=== PATIENT | male | born 1975 | race Caucasian/White ===

== ENCOUNTER 2016-11-23 13:04 | Emergency (ER) | payer OTHER ==
[~2016-11-23] VITALS: Ht 180.3 cm; Wt 104.5 kg
[~2016-11-23 13:04] MED LIST: AMLO5TAB2 PO; CLON0.2T PO; FOLI1TAB18 PO; MULT1CAP33 PO; NICO-206 TOPICAL; PRAZ1CAP2 PO; THIA100T64 PO; TRAZ-115 PO; VENL75CA95 PO
[2016-11-23 13:19] VITALS: BP 7/114; PULSE 117; RESP 18; O2SAT 97
--- NOTE | 2016-11-23 15:06 | ED.REPORT ---
HPI-General Illness Date of Service Nov 23, 2016 ED Provider: Raji Conteh MD Patient is a 41 year old male with a history of hypertension, alcohol and heroin abuse (in recovery) and pancreatitis who presents to the ED complaining of left flank pain/bruising onset 4 days ago. He denies nausea, vomiting, fever , trauma or any traumatic injury. The patient reports that he didn't notice the bruising until two days ago. Patient states that the pain starts in his back and wraps around to the lower abdomen. The patient reports that he heard a "pop " that woke him from his sleep when the pain started. Patient states that it does not feel the same as when he had pancreatitis. He is not anticoagulated. Nursing Notes Stated Complaint: LOWER ABD PAIN Chief Complaint: Male Abdominal Pain Nursing Notes Reviewed: Yes Allergies: Coded Allergies: No Known Allergies (Verified Allergy, Unknown, 11/25/15) Scheduled Amlodipine (Amlodipine) 5 Mg Tablet 10 MG PO DAILY Clonidine (Clonidine) 0.2 Mg Tablet 0.2 MG PO BID Folic Acid (Folic Acid) 1 Mg Tablet 1 MG PO DAILY Multivitamin (Multivitamins) 1 Each Capsule 1 EACH PO DAILY Nicotine 7 mg/24 hr Patch (Nicotine 7 mg/24 hr Patch) 1 Each Patch.td24 1 PATCH TOPICAL Q24H Prazosin (Prazosin) 1 Mg Capsule 1-2 MG PO HS Thiamine Mononitrate (Vitamin B-1) 100 Mg Tablet 100 MG PO DAILY Venlafaxine ER (Venlafaxine ER) 75 Mg Cap.er.24h 75 MG PO DAILY Scheduled PRN Trazodone (Trazodone) 50 Mg Tablet 50 MG PO HS PRN PRN Insomnia General Time Seen by MD: 14:59 Chief Complaint Other (flank pain) Hx Obtained From: Patient Arrived By: Walk-in Sudden in Onset?: Yes Onset Occurred: 4 days ago Symptom Duration: Since onset Location: : Abdomen: Back Quality: Painful Severity: Current: Moderate Similar Sx Previous: No Past Medical History Past Medical History Notes: Immediate December 23 U 2015 for alcohol withdrawal, acute pancreatitis Past Medical History ETOH abuse Chronic pancreatitis PTSD Anxiety Opioid dependence Hypertension (note per admission from December indicates that the plan and started him on metoprolol and hydralazine with the thought that his hypertension seems to be persistent despite pain or resolution of alcohol withdrawal) Reports: Hypertension Reports: Pancreatitis Past Surgical History denies Family History Noncontributory Smoking History Current Every Day Smoker, Heavy Tobacco Smoker Social History Hx of heroin use Alcohol Use: In recovery Drug Use: In recovery Other Social History: Local resident Occupation lives with Dad, no work, no school Ambulatory Status Independent Review of Systems Full Review of Systems Constitutional: Denies: Chills, Fever GI: Reports: Abdominal pain, Denies: Nausea, Vomiting Male: Reports Flank pain Hematologic: Reports Bruising Complete sys rev & neg: except as marked. Physical Exam Vital Signs Vital Signs Date Time Temp Pulse Resp B/P Pulse Ox O2 Delivery O2 Flow Rate FiO2 11/23/16 18:10 98 10 132/73 96 Room Air 11/23/16 13:19 37.2 117 18 7/114 97 Room Air Initial VS: Reviewed General/Constitutional: Awake, Alert Head / Eyes: Atraumatic, Normocephalic, PERRL, EOMI ENT: Atraumatic, Airway patent, Mucous membranes moist Respiratory / Chest: Atraumatic, Breath sounds NL, Breath sounds = bilat, No respiratory distress Cardiovascular: Heart rate NL, Regular rhythm, Heart sounds NL, No gallop, No murmurs, No rubs Abdomen: Atraumatic, Soft, No guarding, No rebound palm sized region of ecchymosis over the left flank and left lower quadrant contact dermititis about the suprapubic region mild left lower quadrant and left upper quadrant tenderness, without rebound or guarding Back: Atraumatic, Inspection NL no percussive flank tenderness Upper Extremities Upper Extremity / MS: Atraumatic, Full range of motion Lower Extremity / Pelvis / MS: Atraumatic, No swelling, Non-tender Skin: No rash, Warm, Dry Neurologic: Oriented X3, Speech NL Psychiatric: Affect NL, Mood NL Interpretation & Diagnostics Lab Results Interpretation Result Diagram: 11/23/16 1520 11/23/16 1520 Test 11/23/16 15:20 11/23/16 15:25 11/23/16 16:30 White Blood Count 11.4th/mm3 (3.8-10.1) Red Blood Count 4.31mil/mm3 (4.40-5.80) Hemoglobin 14.1g/dL (13.8-17.2) Hematocrit 41.0% (41.0-50.0) Mean Corpuscular Volume 95.1fL (81-100) Mean Corpuscular Hemoglobin 32.7pg (27.0-35.0) Mean Corpuscular Hemoglobin Concent 34.4% (32.0-37.0) Red Cell Distribution Width 13.0% (12.3-15.4) Platelet Count 239bil/L (150-400) Neutrophils (%) (Auto) 67.8% (40-74) Lymphocytes (%) (Auto) 23.4% (14-46) Monocytes (%) (Auto) 7.1% (4-12) Eosinophils (%) (Auto) 1.0% (0-5) Basophils (%) (Auto) 0.3% (0-3) Sodium Level 134mEq/L (134-144) Potassium Level 3.9mEq/L (3.5-5.2) Chloride Level 95mEq/L (97-108) Carbon Dioxide Level 22mmol/L (18-29) Blood Urea Nitrogen 10mg/dL (6-24) Creatinine 0.73mg/dL (0.76-1.27) Estimat Glomerular Filtration Rate 126mL/min (>59) Glucose Level 88mg/dL (60-99) Calcium Level 9.3mg/dL (8.5-10.1) Magnesium Level 2.0mg/dL (1.6-2.6) Total Bilirubin 0.7mg/dL (0.0-1.2) Aspartate Amino Transf (AST/SGOT) 36U/L (0-50) Alanine Aminotransferase (ALT/SGPT) 16U/L (0-44) Alkaline Phosphatase 67U/L (25-150) Total Protein 7.8g/dL (6.4-8.4) Albumin 4.5g/dL (3.4-5.0) Lipase 54U/L (13-60) Hold Barnes Top Tube Received (Received) Prothrombin Time 10.0sec (8.1-12.5) Prothromb Time International Ratio 0.94ratio Urine Color Dark yellow (YELLOW) Urine Appearance Clear (CLEAR,HAZY) Urine pH 5.5 (5.0-8.0) Urine Specific [place] 1.030 (1.003-1.035) Urine Protein Tracemg/dL (NEG,TRACE) Urine Glucose (UA) Negativemg/dL (NEGATIVE) Urine Ketones Negativemg/dL (NEGATIVE) Urine Occult Blood Negative (NEGATIVE) Urine Nitrite Negative (NEGATIVE) Urine Bilirubin Negative (NEGATIVE) Urine Urobilinogen Normalmg/dL (NORMAL) Urine Leukocyte Esterase Negative (NEGATIVE) Urine RBC 0-2/hpf (0-2) Urine WBC 0-5/hpf (0-5) Urine Epithelial Cells Few/hpf (NONE-MOD) Urine Crystals None seen (NONE SEEN) Urine Bacteria Few/hpf (NONE-FEW) Urine Hyaline Casts None/lpf (NONE) Urine Granular Casts None seen (NONE SEEN) Urine Waxy Casts None seen (NONE SEEN) Urine Red Blood Cell Casts None seen (NONE SEEN) Urine White Blood Cell Casts None seen (NONE SEEN) Urine Mucus Present (None Seen) Urine Trichomonas None seen (NONE SEEN) Urine Yeast None (NONE SEEN) Urinalysis Comment None Urine Culture Reflexed Not indicated CT Abd / Pelvis Interpretation IMPRESSION: 1. No intraperitoneal fluid or air. 2. No evidence of solid organ laceration or fracture. 3. Hepatic steatosis. 4. Swelling and stranding involving the left lateral abdominal soft tissues which is a nonspecific finding which could be related to posttraumatic contusion, infection or less likely neoplastic process. Please correlate with clinical data. Dictated by: Ree Sotelo MD, PhD on 11/23/2016 at 17:42 Approved by: Ree Sotelo MD, PhD on 11/23/2016 at 17:48 Interpretation / Wet Read by: Interpret - Radiologist Re-Eval/Medical Decision Med Decision/Clinical Course Patient is a 41 year old male with a history of hypertension, alcohol and heroin abuse (in recovery) and pancreatitis who presents to the ED complaining of left flank pain/bruising onset 4 days ago. He denies nausea, vomiting, fever , trauma or any traumatic injury. The patient reports that he didn't notice the bruising until two days ago. Patient states that the pain starts in his back and wraps around to the lower abdomen. The patient reports that he heard a "pop " that woke him from his sleep when the pain started. Patient states that it does not feel the same as when he had pancreatitis. He is not anticoagulated. Here in the emergency department the patient is afebrile with stable vital signs and examination as above. Examination reveals significant ecchymosis about the left flank/abdomen that appears traumatic in nature but he denies any trauma. Patient received the blow medications effect: Order list: IVF, Dilaudid and Zofran Labs: CBC demonstrated leukocytosis of 11.4, otherwise unremarkable CMP unremarkable lipase within normal limits Coag studies normal Urine dip is unremarkable Urinalysis shows dark urine, few bacteria, 0-5 WBC, 0-2 RBC, negative nitrites, negative leukocyte esterase, unconvincing for infection CT abdomen: 1. No intraperitoneal fluid or air. 2. No evidence of solid organ laceration or fracture. 3. Hepatic steatosis. 4. Swelling and stranding involving the left lateral abdominal soft tissues which is a nonspecific finding which could be related to posttraumatic contusion , infection or less likely neoplastic process. Please correlate with clinical data. Here in the emergency department the patient remained hemodynamically stable and in no apparent distress. His abdominal examination was relatively benign on serial reassessments. I was initially concerned that the ecchymosis of his flank and abdomen could be indicative of retroperitoneal blood, severe pancreatitis or other immediately concerning process. CT scan however demonstrated no concerning findings and laboratory studies were relatively unremarkable. He continued to deny any known traumatic injury. I certainly find myself wondering if he may have been drinking again and sustained an injury though he does not appear intoxicated at this time. He continues to state that he has not been drinking alcohol or using drugs. While the cause of his ecchymosis remains unclear I see no evidence of immediately life- threatening process and I feel he is appropriate for discharge. Prior to discharge follow-up and return precautions were reviewed in detail with the patient who verbalized understanding and agreement with the plan. The patient was discharged in stable condition. Re-Evaluation/Progress Note: Discussed results and plan for discharge. Patient understands and agrees to plan. All questions were addressed. Counseled Regarding: Diagnosis, Lab results, Need for follow-up, When/why to return to ED Discharge & Departure Primary Impression: Abdominal contusion Additional Impressions: History of alcohol abuse History of pancreatitis Disposition: Home Discharge Condition All VS Reviewed: Yes Condition: Stable Patient Instructions: Contusion in Adults (ED) Additional Instructions: Thank you for seeking care at the emergency room. Our primary goal today in the Emergency Department was to evaluate you for any life-threatening conditions. Your evaluation was reassuring. Your abdomen CT scan did not show any evidence of pancreatitis. You should follow-up with your primary doctor in the next week. You should return to the Emergency Department immediately if you develop fevers , vomiting or any other concerning signs or symptoms. Thank you for letting us partake in your care today. Referrals: Eusebio Avilez MD (PCP) Jignesh Attestation Portions of this note were transcribed by Peace White. I, Dr. Conteh personally performed the history, physical exam and medical decision-making; I reviewed and confirmed the accuracy of the information in the transcribed note. Signed by: Jignesh Rousseau, 11/23/16 copies to: Eusebio Avilez MD, Beck O MD Nov 23, 2016 15:06 Elena White Nov 23, 2016 15:11
[2016-11-23] MEDS ORDERED: 0.9% Sodium Chloride 1,000 ML IV ONE (15:19)
[2016-11-23] MEDS ORDERED: Ondansetron 2 mg/mL 2 mL Inj IVPUSH ONE (15:20)
[2016-11-23 15:23] LABS: BASOPHILS % (AUTO) 0.3 % (0-3); MONOCYTES % (AUTO) 7.1 % (4-12); Mean Corpuscular Hemoglobin 32.7 pg (27.0-35.0); Mean Corpuscular Volume 95.1 fL (81-100); NEUTROPHILS % (AUTO) 67.8 % (40-74); Platelet Count 239 bil/L (150-400)
[2016-11-23] MEDS: HYDROmorphone 0.5 mg/0.5 mL iSecure Syringe IVPUSH PRN ×2 (15:38→17:18)
[2016-11-23 15:40] LABS: INR 0.94 ratio
[2016-11-23 16:49] LABS: APPEARANCE,URINE CLEAR (CLEAR,HAZY); COLOR,URINE DARK YELLOW (YELLOW); OCCULT BLOOD,URINE NEGATIVE (NEGATIVE); PH,URINE 5.5 (5.0-8.0)
[2016-11-23 16:50] LABS: UROBILINOGEN,URINE NORMAL (NORMAL)
--- NOTE | 2016-11-23 17:49 | DRSVH ---
PROCEDURE: CT ABDOMEN AND PELVIS WITH CONTRAST ([id number]) INDICATIONS: abd pain, L abd ecchymosis TECHNIQUE: After the administration of intravenous contrast, 5 mm thick sections acquired from the diaphragm to the symphysis. 5 mm coronal and sagittal reformats were acquired. For radiation dose reduction, the following was used: automated exposure control, adjustment of mA and/or kV according to patient dragan stone. COMPARISON: [facility], CT, CT ABD PELVIS W CON, 11/21/2014, 14:30. FINDINGS: Image quality: Excellent. ABDOMEN: Lung bases: Lung bases are clear. Heart size is normal. Solid organs: Liver and spleen are normal in size and enhancement. Diffuse fatty infiltration of the liver. Gallbladder is within normal limits. Biliary system is non dilated. Pancreas enhances adrienne lly. No adrenal nodules. Kidneys demonstrate normal size and enhancement, without hydronephrosis. Peritoneum and bowel: Bowel loops demonstrate normal wall thickness and caliber. No free fluid or a ir. Nodes and vessels: No retroperitoneal or mesenteric adenopathy by size criteria. Aorta and inferior vena cava are normal in size. Miscellaneous: No ventral hernias. PELVIS: Genitourinary: Bladder wall thickness is normal. Miscellaneous: No inguinal hernias or adenopathy. Stranding and soft tissue swelling noted in the le ft lateral abdominal wall which given history of ecchymosis may represent post rheumatic contusion; p lease correlate with clinical data. Bones: No suspicious bony lesions. No vertebral body compression fractures. Spine degenerative dise ase and facet arthropathy noted. IMPRESSION: 1. No intraperitoneal fluid or air. 2. No evidence of solid organ laceration or fracture. 3. Hepatic steatosis. 4. Swelling and stranding involving the left lateral abdominal soft tissues which is a nonspecific f inding which could be related to posttraumatic contusion, infection or less likely neoplastic process . Please correlate with clinical data. Dictated by: Ree Sotelo MD, PhD on 11/23/2016 at 17:42 Approved by: Ree Sotelo MD, PhD on 11/23/2016 at 17:48
[2016-11-23 18:10] VITALS: BP 132/73; PULSE 98; RESP 10; O2SAT 96
== END 2016-11-23 18:15 | disposition home or self-care (01) ==
LOC: SED 13:04
DX: S30.1XXA Contusion of abdominal wall, initial encounter (principal); X50.9XXA Other and unspecified overexertion or strenuous movements or postures, initial encounter; Y93.89 Activity, other specified; Y92.89 Other specified places as the place of occurrence of the external cause; Y99.8 Other external cause status; F10.10 Alcohol abuse, uncomplicated; I10 Essential (primary) hypertension; F41.9 Anxiety disorder, unspecified; F17.200 Nicotine dependence, unspecified, uncomplicated; Z87.19 Personal history of other diseases of the digestive system
CPT/HCPCS: 36415; 74177; 80053; 81000; 83690; 83735; 85025; 85610; 96361; 96374; 96375; 96376; 99285; J1170; J2405; J7030; Q9967

== ENCOUNTER 2016-11-26 07:03 | Observation (INO) | payer OTHER ==
[2016-11-25 13:45] VITALS: BP 168/94; PULSE 78; RESP 18; O2SAT 97
[~2016-11-26] VITALS: Ht 180.3 cm; Wt 106.0 kg
[2016-11-26 07:14] VITALS: BP 173/104; PULSE 97; RESP 17; O2SAT 95
--- NOTE | 2016-11-26 07:28 | ED.REPORT ---
HPI-General Illness Date of Service Nov 26, 2016 ED Provider: Sandy Sawyer MD The pt is a 41 y/o male w/ a hx of ETOH abuse, pancreatitis, PTSD, anxiety, opiod dependence, and HTN presenting to the ED complaining of L flank pain onset 6 days ago. The pt reports feeling a pop around his L ribs which was when the pain began. He began to notice the bruising 7 days ago and it has gradually spread since then. The pt is not experiencing any SOB but it does hurt his L side when he breathes deeply. He has also experienced a few episodes of dizziness and small twinges of abdominal pain. Denies changes in eating or drinking habits, cough, fevers, vomiting, diarrhea, chest pain, blood in stool. The pt was seen here in the ED 3 days ago for L flank pain w/ bruising on the left side that began 3 days prior. His CXR and abdominal CT, were unremarkable. His bloodwork was also unremarkable, specifically showing no pancreatitis. His final dx for the visit was a contusion. The pt has had pancreatitis in the past but says the pain today is much different. He has not taken anything for the pain. The pts hematocrit was 41 three days and ago and is down to 37 today. Nursing Notes Stated Complaint: ABDOMINAL PAIN Chief Complaint: Male Abdominal Pain Nursing Notes Reviewed: Yes Allergies: Coded Allergies: No Known Allergies (Verified Allergy, Unknown, 11/25/15) Scheduled Lisinopril (Lisinopril) 20 Mg Tablet 20 MG PO DAILY General Time Seen by MD: 07:27 Chief Complaint Other (L flank pain ) Hx Obtained From: Patient Arrived By: Walk-in Sudden in Onset?: Yes Onset Occurred: 6 days ago Symptom Duration: Since onset Recent Healthcare: No recent hospitalization, Recent doctor visit Past Medical History Past Medical History Notes: Immediate December 23 U 2015 for alcohol withdrawal, acute pancreatitis Past Medical History ETOH abuse Chronic pancreatitis PTSD Anxiety Opioid dependence Hypertension Reports: Hypertension Reports: Pancreatitis Past Surgical History denies Family History Noncontributory Smoking History Current Every Day Smoker, Heavy Tobacco Smoker Social History Hx of heroin use Alcohol Use: In recovery Drug Use: In recovery Other Social History: Local resident Occupation lives with Dad, no work, no school Ambulatory Status Independent Review of Systems Denies SOB but experiences increased pain w/ deep breathing; Denies changes in eating or drinking habits; Full Review of Systems Constitutional: Denies: Fever Respiratory: Denies: Non-productive cough Cardiovascular: Denies: Chest pain GI: Reports: Abdominal pain, Denies: Bloody/tarry stool, Diarrhea, Vomiting Male: Reports Flank pain (L sided ) Skin: Reports Bruising (L ribs and abdomen ) Neurologic: Reports: Dizziness Complete sys rev & neg: except as marked. Physical Exam Vital Signs Vital Signs Date Time Temp Pulse Resp B/P Pulse Ox O2 Delivery O2 Flow Rate FiO2 11/26/16 08:17 87 21 148/90 96 Room Air 11/26/16 07:14 37 97 17 173/104 95 Room Air Initial VS: Reviewed General/Constitutional: Well-developed, Well-nourished Head / Eyes: Atraumatic, Normocephalic, PERRL ENT: Mucous membranes moist, Conjunctiva normal, No scleral icterus Neck: Supple, Non-tender, Full range of motion Respiratory: Breath sounds normal, Clear to auscultation, No respiratory distress Cardiovascular: Regular rate & rhythm, Heart sounds normal, Intact distal pulses Neurologic: Alert, Oriented, Nonfocal Psychiatric: Mood/affect normal, Behavior normal, Normal thought content Flank / Spine / Paraspinal: Positive: Flank tender L Skin: No rash, Dry, Intact Large hematoma that extends from L posterior iliac crest, past midline, and roughly 4 cm past the umbilicus Interpretation & Diagnostics The pts hematocrit was 41 three days and ago and is down to 37 today. Lab Results Interpretation Result Diagram: 11/26/16 1008 11/26/16 0750 Test 11/26/16 07:50 11/26/16 09:39 11/26/16 10:08 White Blood Count 5.7th/mm3 (3.8-10.1) Red Blood Count 3.84mil/mm3 (4.40-5.80) Mean Corpuscular Volume 97.1fL (81-100) Mean Corpuscular Hemoglobin 32.8pg (27.0-35.0) Mean Corpuscular Hemoglobin Concent 33.8% (32.0-37.0) Red Cell Distribution Width 12.9% (12.3-15.4) Platelet Count 226bil/L (150-400) Neutrophils (%) (Auto) 50.3% (40-74) Lymphocytes (%) (Auto) 36.6% (14-46) Monocytes (%) (Auto) 10.6% (4-12) Eosinophils (%) (Auto) 2.1% (0-5) Basophils (%) (Auto) 0.2% (0-3) Prothrombin Time 9.8sec (8.1-12.5) Prothromb Time International Ratio 0.92ratio Activated Partial Thromboplast Time 25.8sec (22.8-33.0) Sodium Level 136mEq/L (134-144) Potassium Level 4.1mEq/L (3.5-5.2) Chloride Level 100mEq/L (97-108) Carbon Dioxide Level 22mmol/L (18-29) Blood Urea Nitrogen 8mg/dL (6-24) Creatinine 0.59mg/dL (0.76-1.27) Estimat Glomerular Filtration Rate 161mL/min (>59) Glucose Level 92mg/dL (60-99) Calcium Level 9.0mg/dL (8.5-10.1) Magnesium Level 1.8mg/dL (1.6-2.6) Total Bilirubin 0.3mg/dL (0.0-1.2) Aspartate Amino Transf (AST/SGOT) 61U/L (0-50) Alanine Aminotransferase (ALT/SGPT) 24U/L (0-44) Alkaline Phosphatase 65U/L (25-150) Total Protein 7.3g/dL (6.4-8.4) Albumin 4.1g/dL (3.4-5.0) Lipase 60U/L (13-60) Hold Urine Received (Received) Hemoglobin 12.5g/dL (13.8-17.2) Hematocrit 37.5% (41.0-50.0) ECG Interpretation ECG Interpretation: Rate 103 Sinus tachycardia Normal early repolarization pattern Similar to 02/11/16 Time: 10:41 Interpreted by: ED physician CT Abd / Pelvis Interpretation IMPRESSION: 1. Stable examination compared to 11/23/2016. 2. Hematoma involving the left lateral abdominal wall soft tissues not significantly changed in size compared to prior examination. 3. Subtle blush of enhancement centrally within the left lateral abdominal wall hematoma suspicious for contrast extravasation/active bleeding. Dictated by: Ree Sotelo MD, PhD on 11/26/2016 at 9:13 Approved by: Ree Sotelo MD, PhD on 11/26/2016 at 9:32 Study type: Abdom CT oral contrast Interpretation / Wet Read by: Interpret - Radiologist Re-Eval/Medical Decision Med Decision/Clinical Course 41-year-old gentleman with second presentation for large developing hematoma over the left flank extending over the lower abdomen. Been increasing for 7 days he has no trauma he's been seen once with full evaluation that was relatively unremarkable. In the interval his hematocrit has fallen consistent with the amount of blood that appears to be in the abdominal wall hematoma. He is also having increasing pain and repeat CT scan shows a suggestion of continued small extravasation of blood into the surrounding area. At this point does not seem to be related to trauma, no masses, no infection still clearly worsening with dropping hematocrit. On reevaluation noted sinus arrhythmia. While sitting and talking he would go from normal sinus in the 80s to a narrow complex regular tachycardia in the 120s and then converted back into sinus. He was asymptomatic with this. It was documented in multiple different ways and clearly not artifact. Will admit to hospitalist service consideration of some type of bleeding dyscrasia will follow hematocrits treat pain. Long discussion multiple times during his emergency room stay today regarding his 2-1/2 years sobriety recovery and risk of relapse when using narcotics to treat acute pain. Source of Hx: Old records Time of Eval: 10:00 Re-Evaluation/Progress Note: Pt rechecked. Discussed imaging and lab results. The pt is continuing to feel pain. Telemetry shows rhythm sinus in the 80's and narrow complex at 120. Discussed plan for EKG. Informed pt of need for admission. Pt understands and agrees with plan for admission. All questions addressed. Consultation #1: Referral / Consult Name: Ree Sotelo MD, PhD Call Returned at: 09:23 Note: Spoke w/ Dr. Sotelo, radiologist, who did not see any significant changes in CT results. Consultation #2: Referral / Consult Name: Rupa Bergeron MD Consulted With: Hospitalist Call Returned at: 11:56 Field Collector: Will see patient, Agrees with eval, Agrees with plan, Accepts admit Counseled Regarding: Diagnosis, Lab results, Need for admission Discharge & Departure Primary Impression: Abdominal wall hematoma Encounter type: subsequent encounter Qualified Code: S30.1XXD - Contusion of abdominal wall, subsequent encounter Additional Impression: Acute blood loss anemia Disposition: ADMITTED TO HOSPITAL Discharge Condition All VS Reviewed: Yes Condition: Stable Referrals: Eusebio Avilez MD (PCP) Scribe Attestation Portions of this note were transcribed by Bill Taylor. I, Dr. Sawyer personally performed the history, physical exam and medical decision-making; I reviewed and confirmed the accuracy of the information in the transcribed note. copies to: Eusebio Avilez MD, Shawna L MD Nov 26, 2016 07:28 Bill Taylor Nov 26, 2016 09:20
[2016-11-26] MEDS ORDERED: 0.9% Sodium Chloride 1,000 ML IV ONE (07:47)
[2016-11-26 08:01] LABS: BASOPHILS % (AUTO) 0.2 % (0-3); EOSINOPHILS % (AUTO) 2.1 % (0-5); MONOCYTES % (AUTO) 10.6 % (4-12); Mean Corpuscular Hemoglobin 32.8 pg (27.0-35.0); Mean Corpuscular Volume 97.1 fL (81-100); NEUTROPHILS % (AUTO) 50.3 % (40-74); Platelet Count 226 bil/L (150-400)
[2016-11-26 08:17] VITALS: BP 148/90; PULSE 87; RESP 21; O2SAT 96
[2016-11-26 08:29] LABS: Magnesium 1.8 mg/dL (1.6-2.6)
--- NOTE | 2016-11-26 09:34 | DRSVH ---
PROCEDURE: CT ABDOMEN AND PELVIS WITH CONTRAST (PNL-7102) INDICATIONS: Left flank hematoma. No reported history of trauma. TECHNIQUE: After the administration of intravenous contrast, 5 mm thick sections acquired from the diaphragm to the symphysis. 5 mm coronal and sagittal reformats were acquired. For radiation dose reduction, the following was used: automated exposure control, adjustment of mA and/or kV according to patient dragan stone. COMPARISON: [facility], CT, CT ABD PELVIS W CON, 11/23/2016, 17:19. FINDINGS: Image quality: Excellent. ABDOMEN: Lung bases: Lung bases are clear. Heart size is normal. Solid organs: Liver and spleen are normal in size and enhancement. Diffuse fatty infiltration the li dianne is noted. Gallbladder is within normal limits. Biliary system is non dilated. Pancreas enhances normally. No adrenal nodules. Kidneys demonstrate normal size and enhancement, without hydronephro sis. Peritoneum and bowel: Bowel loops demonstrate normal wall thickness and caliber. No free fluid or a ir. Nodes and vessels: No retroperitoneal or mesenteric adenopathy by size criteria. Aorta and inferior vena cava are normal in size. Miscellaneous: No ventral hernias. PELVIS: Genitourinary: Bladder wall thickness is normal. Miscellaneous: No inguinal hernias or adenopathy. Stranding in the soft tissue swelling noted in the left lateral abdominal wall soft tissues compatible with reported hematoma. Hematoma has not signifi cantly changed in the size or contour compared to 11/23/16. There is very subtle contrast blush in cornell trally within the left lateral abdominal wall musculature which may represent subtle contrast extrava sation/active bleeding, however underlying enhancing neoplastic process could produce a similar appea jennifer.. Bones: No suspicious bony lesions. No vertebral body compression fractures. Spine degenerative disc disease and facet arthropathy. IMPRESSION: 1. Stable examination compared to 11/23/2016. 2. Hematoma involving the left lateral abdominal wall soft tissues not significantly changed in size compared to prior examination. 3. Subtle blush of enhancement centrally within the left lateral abdominal wall hematoma suspicious f or contrast extravasation/active bleeding. Dictated by: Ree Sotelo MD, PhD on 11/26/2016 at 9:13 Approved by: Ree Sotelo MD, PhD on 11/26/2016 at 9:32
[2016-11-26] MEDS ORDERED: HYDROmorphone 1 mg/mL Inj IVPUSH ONE ×2 (09:35→11:30)
[2016-11-26 10:07] LABS: INR 0.92 ratio
[2016-11-26] MEDS ORDERED: Ondansetron 2 mg/mL 2 mL Inj IVPUSH PRN ×2 (13:15→15:30)
[2016-11-26] MEDS ORDERED: oxyCODONE-Acetamin 5-325 mg Tablet PO ONE (13:15)
[2016-11-26] MEDS ORDERED: Alum-Mag Hydrox-Simeth 30 mL Suspension PO PRN ×2 (13:15→15:30)
[2016-11-26 13:45] VITALS: BP 168/94; PULSE 78; RESP 18; O2SAT 97
[2016-11-26] MEDS ORDERED: LISI-567 PO (15:26)
--- NOTE | 2016-11-26 15:28 | NUR ---
Admit A&O pt arrived to unit via stretcher at 1345 from ED. Pt c/o L sided abd pain 10/20. Admit complete. just seen pt. IV x1 SL. On tele, SR 90s. VSS. Bed in low position, upper 2 rails up, call light in reach. Abdominal girth measured, 47".
[2016-11-26] MEDS ORDERED: Polyethylene Glycol (PEG) 17 Gm Powder PO PRN (15:30)
--- NOTE | 2016-11-26 15:52 | PCM.HPMED ---
Subjective Date of Service Nov 26, 2016 Primary Provider: Admitting Physician: Rupa Bergeron MD Primary Care Physician: Eusebio Avilez MD Attending Physician: Rupa Bergeron MD Chief Complaint: Left lower abdominal pain and "bruising" History of Present Illness: One week ago he awoke at 2:30 in the morning with a sensation like there was a "pop" in the left lateral rib area. This was followed by significant pain which caused a sensation of shortness of breath. The pain persisted and the next day he noticed there was a "bruise" on his left side that was about 3-4 inches in size. He missed work on Monday and Monday and noted that the bruise was gradually increasing in size and becoming more painful. In addition to the left side pain he now has aching in the mid lower abdomen. He was seen in the emergency department on Monday which was 3 days ago. 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 Pain was worse when bending over or especially if bending over to pick something up. Yesterday he had a few "dizzy spells" which seem to be a sensation that he was moving, these would last about 10 seconds. Today he came to the emergency department because of the increasing pain and increasing size of the hematoma. Review of Systems: Since noting the hematoma has been aware of a slight cough or a "tickle in the throat" that has been nonproductive. No fever chills or sweats. Review of systems otherwise unremarkable. 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 Feb 2016 Alcoholism, currently sober History of heroin addiction Surgical History None Family History Mother alive and well, Father with diabetes and heart disease (pacer) Denies any known history of bleeding or clotting disorders Social History Hx Alcohol Use: No (prev herion, none since Feb 2016, does use marijuana each shirin) Hx Substance Use: Yes (meth(quit), heroin IM( last used 02/10/16)) Hx Tobacco Use: Yes Smoking Status: Current Every Day Smoker (half ppd), Heavy Tobacco Smoker Additional Information Lives with girlfriend of 14 years, she has 3 children he also has a child from a previously relationship. Works as a set up machinist. Has an AA sponsor he works closely with Exam Vital Signs Vital Sign - Last Date Time Temp Pulse Resp B/P Pulse Ox O2 Delivery O2 Flow Rate FiO2 11/26/16 13:45 36.8 78 18 168/94 97 Room Air Exam General: Alert and oriented, no acute distress HEENT: Unremarkable Neck: No JVD, carotids 2+ Heart: Regular Lungs: Clear Abdomen: Soft, bowel tones present, has hematoma from the left lateral lower abdomen to the mid lower abdomen, also some left upper quadrant tenderness Extremities: No pedal edema Neuro: No apparent deficits Lab and Diagnostics Result Diagram: 11/26/16 1008 11/26/16 0750 X-Rays, CTs and MRIs PROCEDURE: CT ABDOMEN AND PELVIS WITH CONTRAST (PNL-7102) INDICATIONS: Left flank hematoma. No reported history of trauma. TECHNIQUE: After the administration of intravenous contrast, 5 mm thick sections acquired from the diaphragm to the symphysis. 5 mm coronal and sagittal reformats were acquired. For radiation dose reduction, the following was used: automated exposure control, adjustment of mA and/or kV according to patient size. COMPARISON: [facility], CT, CT ABD PELVIS W CON, 11/23/2016, 17:19. FINDINGS: Image quality: Excellent. ABDOMEN: Lung bases: Lung bases are clear. Heart size is normal. Solid organs: Liver and spleen are normal in size and enhancement. Diffuse fatty infiltration the liver is noted. Gallbladder is within normal limits. Biliary system is non dilated. Pancreas enhances normally. No adrenal nodules. Kidneys demonstrate normal size and enhancement, without hydronephrosis. Peritoneum and bowel: Bowel loops demonstrate normal wall thickness and caliber. No free fluid or air. Nodes and vessels: No retroperitoneal or mesenteric adenopathy by size criteria. Aorta and inferior vena cava are normal in size. Miscellaneous: No ventral hernias. PELVIS: Genitourinary: Bladder wall thickness is normal. Miscellaneous: No inguinal hernias or adenopathy. Stranding in the soft tissue swelling noted in the left lateral abdominal wall soft tissues compatible with reported hematoma. Hematoma has not significantly changed in the size or contour compared to 11/23/16. There is very subtle contrast blush in centrally within the left lateral abdominal wall musculature which may represent subtle contrast extravasation/active bleeding, however underlying enhancing neoplastic process could produce a similar appearance.. Bones: No suspicious bony lesions. No vertebral body compression fractures. Spine degenerative disc disease and facet arthropathy. IMPRESSION: 1. Stable examination compared to 11/23/2016. 2. Hematoma involving the left lateral abdominal wall soft tissues not significantly changed in size compared to prior examination. 3. Subtle blush of enhancement centrally within the left lateral abdominal wall hematoma suspicious for contrast extravasation/active bleeding. Dictated by: Ree Sotelo MD, PhD on 11/26/2016 at 9:13 Approved by: Ree Sotelo MD, PhD on 11/26/2016 at 9:32 Assessment & Plan # Abdominal wall hematoma - Discussed with Dr. Mcginnis who did not feel he needs any further evaluation for bleeding disorder other than the PT and PTT which have been done and are normal - Repeat hemoglobin in the morning - Pain control, in spite of his history of heroin addiction he feels his pain is severe enough to warrant narcotics, he feels this will not trigger relapse especially with the support of his AA sponsor # Hypertension - Continue his usual lisinopril 20 mg daily VTE Mechanical Devices: Venous Foot Pump Rupa Bergeron MD Nov 26, 2016 15:52
[2016-11-26 16:20] VITALS: PULSE 74
[2016-11-26] MEDS: oxyCODONE-Acetamin 5-325 mg Tablet PO PRN (19:26)
[2016-11-26 20:11] VITALS: BP 152/90; PULSE 81; RESP 18; O2SAT 98
[2016-11-27 00:15] VITALS: BP 161/93; PULSE 72; RESP 20; O2SAT 97
[2016-11-27] MEDS: oxyCODONE-Acetamin 5-325 mg Tablet PO PRN (03:30)
[2016-11-27 03:38] VITALS: BP_SYST 211; BP_SYST 227; BP_DIAS 127; PULSE 92; RESP 28; O2SAT 97
[2016-11-27] MEDS: HYDROmorphone 0.5 mg/0.5 mL iSecure Syringe IVPUSH PRN ×2 (04:00→08:00)
[2016-11-27 04:15] LABS: Mean Corpuscular Hemoglobin 32.7 pg (27.0-35.0); Mean Corpuscular Volume 96.4 fL (81-100)
--- NOTE | 2016-11-27 04:39 | NUR ---
Pain/Anxiety Patient was found to be crying in room at about 0330. Appeared panicked, stated that he "can't breathe" from the pain. Oxygen was 97% room air, given 2L nasal cannula per his request. Assessed hematoma site, unchanged from previous assessments. BP was elevated, 227/127. MD called. New orders to get AM labs now, give OT IV Lorazepam, 0.25mg, may repeat once, and change pain medication from Morphine to Dilaudid. Patient updated on plan. Hemoglobin increased from previous lab, 12.5 to 13.5. Had to administer both doses of Lorazepam. Administered Dilaudid. At 0430, patient is more calm, but reported that he is afraid that he is dying. Active listening, patient is now currently resting with eyes closed. Addendum: 11/27/16 at 0449 by SHAYLA DELUCA RN Correction, BP was 211/127.
[2016-11-27 05:28] VITALS: BP 156/109; PULSE 85; RESP 22; O2SAT 97
[2016-11-27 06:35] VITALS: PULSE 76
--- NOTE | 2016-11-27 07:24 | PCM.DIMED ---
Discharge Instructions Date of Service Nov 27, 2016 Dates of Hospitalization Nov 26, 2016 at 11:34 Discharge Diagnosis Discharge Diagnosis Abdominal Wall Hematoma Diet Discharge Diet: No restrictions Activity Discharge Activity: Other (Light duty at work through Nov 30 - avoid lifting and bending) Call your provider Call your provider for: Other (worsening pain or new bleeding) Patient Instructions Patient Instructions Your blood pressure was elevated during your hospital stay so have your doctor recheck this, you may need additional medication. Follow-up with PCP in: 1 week Rupa Bergeron MD Nov 27, 2016 07:24
[2016-11-27] MEDS ORDERED: OXYC-530 PO (07:25)
--- NOTE | 2016-11-27 07:30 | PCM.DC.MED ---
Discharge Summary Date of Service Nov 27, 2016 Dates of Hospitalization Date of Hospital Admission Nov 26, 2016 at 11:34 Date of Discharge: Nov 27, 2016 Providers: Admitting Physician: Rupa Potts MD Primary Care Physician: Eusebio Avilez MD Attending Physician: Rupa Potts MD Diagnosis at Time of Discharge Diagnosis at Time of Discharge Abdominal Wall Hematoma Procedures XRay, CTs & MRIs PROCEDURE: CT ABDOMEN AND PELVIS WITH CONTRAST (PNL-7102) INDICATIONS: Left flank hematoma. No reported history of trauma. TECHNIQUE: After the administration of intravenous contrast, 5 mm thick sections acquired from the diaphragm to the symphysis. 5 mm coronal and sagittal reformats were acquired. For radiation dose reduction, the following was used: automated exposure control, adjustment of mA and/or kV according to patient size. COMPARISON: [facility], CT, CT ABD PELVIS W CON, 11/23/2016, 17:19. FINDINGS: Image quality: Excellent. ABDOMEN: Lung bases: Lung bases are clear. Heart size is normal. Solid organs: Liver and spleen are normal in size and enhancement. Diffuse fatty infiltration the liver is noted. Gallbladder is within normal limits. Biliary system is non dilated. Pancreas enhances normally. No adrenal nodules. Kidneys demonstrate normal size and enhancement, without hydronephrosis. Peritoneum and bowel: Bowel loops demonstrate normal wall thickness and caliber. No free fluid or air. Nodes and vessels: No retroperitoneal or mesenteric adenopathy by size criteria. Aorta and inferior vena cava are normal in size. Miscellaneous: No ventral hernias. PELVIS: Genitourinary: Bladder wall thickness is normal. Miscellaneous: No inguinal hernias or adenopathy. Stranding in the soft tissue swelling noted in the left lateral abdominal wall soft tissues compatible with reported hematoma. Hematoma has not significantly changed in the size or contour compared to 11/23/16. There is very subtle contrast blush in centrally within the left lateral abdominal wall musculature which may represent subtle contrast extravasation/active bleeding, however underlying enhancing neoplastic process could produce a similar appearance.. Bones: No suspicious bony lesions. No vertebral body compression fractures. Spine degenerative disc disease and facet arthropathy. IMPRESSION: 1. Stable examination compared to 11/23/2016. 2. Hematoma involving the left lateral abdominal wall soft tissues not significantly changed in size compared to prior examination. 3. Subtle blush of enhancement centrally within the left lateral abdominal wall hematoma suspicious for contrast extravasation/active bleeding. Dictated by: Ree Sotelo MD, PhD on 11/26/2016 at 9:13 Approved by: Ree Sotelo MD, PhD on 11/26/2016 at 9:32 Brief History One week ago he awoke at 2:30 in the morning with a sensation like there was a "pop" in the left lateral rib area. This was followed by significant pain which caused a sensation of shortness of breath. The pain persisted and the next day he noticed there was a "bruise" on his left side that was about 3-4 inches in size. He missed work on Monday and Monday and noted that the bruise was gradually increasing in size and becoming more painful. In addition to the left side pain he now has aching in the mid lower abdomen. He was seen in the emergency department on Monday which was 3 days ago. 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 Pain was worse when bending over or especially if bending over to pick something up. Yesterday he had a few "dizzy spells" which seem to be a sensation that he was moving, these would last about 10 seconds. Today he came to the emergency department because of the increasing pain and increasing size of the hematoma. Hospital Course # Abdominal wall hematoma - Discussed with Dr. Mcginnis who did not feel he needs any further evaluation for bleeding disorder other than the PT and PTT which have been done and are normal - Repeat hemoglobin on the morning improved (12.5 to 13.5) - Pain control, in spite of his history of heroin addiction he feels his pain is severe enough to warrant narcotics, he feels this will not trigger relapse especially with the support of his AA sponsor. - Getting fairly good control of his pain with the oxycodone 15 mg and feels he can manage at home with this, does want a last dose of IV Dilaudid before he discharges. # Hypertension - Continue his usual lisinopril 20 mg daily - Follow up with his primary care physician, systolic blood pressure here was mostly in the 150s and 160s but did go to 211 when he became quite anxious Exam Vital Signs (Last) Date Time Temp Pulse Resp B/P Pulse Ox O2 Delivery O2 Flow Rate FiO2 11/27/16 06:35 76 11/27/16 05:28 36.8 22 156/109 97 Room Air Exam General: Alert and oriented, no acute distress Heart: Regular Lungs: Clear Abdomen: Soft, mild tenderness over hematoma which has extend approx 1 cm medially and 1 cm distally on lateral side Extremities: No pedal edema Test 11/26/16 07:50 11/26/16 09:39 11/27/16 04:05 Neutrophils (%) (Auto) 50.3% (40-74) Lymphocytes (%) (Auto) 36.6% (14-46) Monocytes (%) (Auto) 10.6% (4-12) Eosinophils (%) (Auto) 2.1% (0-5) Basophils (%) (Auto) 0.2% (0-3) Prothrombin Time 9.8sec (8.1-12.5) Prothromb Time International Ratio 0.92ratio Activated Partial Thromboplast Time 25.8sec (22.8-33.0) Sodium Level 136mEq/L (134-144) Potassium Level 4.1mEq/L (3.5-5.2) Chloride Level 100mEq/L (97-108) Carbon Dioxide Level 22mmol/L (18-29) Blood Urea Nitrogen 8mg/dL (6-24) Creatinine 0.59mg/dL (0.76-1.27) Estimat Glomerular Filtration Rate 161mL/min (>59) Glucose Level 92mg/dL (60-99) Calcium Level 9.0mg/dL (8.5-10.1) Magnesium Level 1.8mg/dL (1.6-2.6) Total Bilirubin 0.3mg/dL (0.0-1.2) Aspartate Amino Transf (AST/SGOT) 61U/L (0-50) Alanine Aminotransferase (ALT/SGPT) 24U/L (0-44) Alkaline Phosphatase 65U/L (25-150) Total Protein 7.3g/dL (6.4-8.4) Albumin 4.1g/dL (3.4-5.0) Lipase 60U/L (13-60) Hold Urine Received (Received) White Blood Count 7.6th/mm3 (3.8-10.1) Red Blood Count 4.13mil/mm3 (4.40-5.80) Hemoglobin 13.5g/dL (13.8-17.2) Hematocrit 39.8% (41.0-50.0) Mean Corpuscular Volume 96.4fL (81-100) Mean Corpuscular Hemoglobin 32.7pg (27.0-35.0) Mean Corpuscular Hemoglobin Concent 33.9% (32.0-37.0) Red Cell Distribution Width 12.6% (12.3-15.4) Platelet Count 261bil/L (150-400) Discharge Medications Discharge Medications Lisinopril (Lisinopril) 20 Mg Tablet 20 MG PO DAILY (Reported) As needed oxyCODONE (oxyCODONE) 5 Mg Tablet 15 MG PO Q6H PRN PRN For Moderate Pain Prescribed by: RUPA POTTS MD Followup Plan Discharge Diet: No restrictions Discharge Activity: Other (Light duty at work through Nov 30 - avoid lifting and bending) Patient Instructions Your blood pressure was elevated during your hospital stay so have your doctor recheck this, you may need additional medication. Follow-up with PCP in: 1 week Rupa Potts MD Nov 27, 2016 07:30
--- NOTE | 2016-11-27 09:15 | NUR ---
discharge paperwork reviewed, no questions at this time. pt denies CP/pain/distress. IV removed, pt needed extra pressure and coban dressing to stop the blood flow. pt refuses W/C ride to return to private car and then to private home.
--- NOTE | 2016-11-27 15:35 | NUR ---
Social Work: Discharge Data: EMR reviewed. Patient is on day 1 of hospitalization for abdominal wall hematoma and acute anemia per H&P. Patient's insurance is [employer] and his PCP is Eusebio Avilez MD. Patient was discussed in morning rounds. Patient has been deemed medically stable for discharge today per MD. No concerns were noted during rounds by MD or staff. SW was unable to complete initial assessment prior to discharge. Transportation arrangements were made by patient. Assessment: Patient to discharge home. Plan: Patient discharged home today. Transportation needs were arranged by patient. Patient had no additional needs at time of discharge. SUZE Kline
== END 2016-11-27 09:15 | disposition home or self-care (01) ==
LOC: SED 07:03 → MPC 11:34
PROVIDERS: ADMIT Internal Medicine; ATTEND Internal Medicine
DX: S30.1XXA Contusion of abdominal wall, initial encounter (principal); R10.32 Left lower quadrant pain; I10 Essential (primary) hypertension; F10.10 Alcohol abuse, uncomplicated; F11.10 Opioid abuse, uncomplicated; B19.20 Unspecified viral hepatitis C without hepatic coma; R05 Cough; F17.210 Nicotine dependence, cigarettes, uncomplicated; X58.XXXA Exposure to other specified factors, initial encounter; Y93.9 Activity, unspecified; Y92.9 Unspecified place or not applicable; Y99.9 Unspecified external cause status
CPT/HCPCS: 36415; 74177; 80053; 83690; 83735; 85014; 85018; 85025; 85027; 85610; 85730; 86850; 93005; 96361; 96374; 96375; 96376; 99285; G0378; J1170; J2060; J2270; J7030; Q9967